=== PATIENT | male | born 1960 | race African-American/Black ===

== ENCOUNTER 2016-10-13 23:42 | Observation (INO) | payer OTHER ==
[~2016-10-13] VITALS: Ht 180.3 cm; Wt 93.7 kg
[~2016-10-13 23:42] MED LIST: ADVAIR 500/501 DISK IH; LISINOPRIL10 MG PO; NAPROSYN500 MG PO; NORCO 5/3251 TABLET PO; SPIRIVA1 INHALATI IH; VENTOLIN HFA18 GM IH
[2016-10-14] VITALS (7 sets, daily range): BP systolic 111–165; BP diastolic 71–98
[2016-10-14 01:02] LABS: HEMATOCRIT 45.7 % (38.0-50.0); MCH 30.7 PG (29.0-34.0); MCHC 34.1 G/DL (30.0-36.0); MEAN PLAT.VOLUME 9.7 uM^3 (9.0-12.4); PLATELET COUNT 217 K/uL (156-360); RBC DIS.WIDTH-CV 13.2 % (11.8-14.6); RBC DIS.WIDTH-SD 43.9 % (39-53); RED BLOOD COUNT 5.08 M/uL (4.00-5.50); WHITE BLOOD COUNT 4.6 K/uL (4.1-10.2)
[2016-10-14 01:10] LABS: CHLORIDE 104 mEq/L (99-109); POTASSIUM 3.6 mEq/L (3.7-5.4); SODIUM 143 mEq/L (136-147)
[2016-10-14 01:12] LABS: GLUCOSE 90 mg/dL (70-99)
[2016-10-14 01:13] LABS: ANION GAP 12 MEQ/L (2-14)
[2016-10-14 01:15] LABS: GFR ESTIMATE (CALCULATED) > 59 mL/min/
[2016-10-14 01:16] LABS: UREA NITROGEN (BUN) 14 mg/dL (9-23)
[2016-10-14 01:21] LABS: TROP-I INTERPRETATION NEGATIVE; TROPONIN-I < 0.01 ng/mL (0.0-0.30)
[2016-10-14 04:01] LABS: MAGNESIUM 1.7 mg/dL (1.3-2.7)
[2016-10-14 08:45] LABS: HDL CHOLESTEROL 46 MG/DL (Desirable>=40); LDL CHOLESTEROL 155 mg/dL (Desirable<100); NON-HDL CHOLESTEROL 173 mg/dL (Desirable<160); TOTAL CHOLESTEROL 219 mg/dL (Desirable<200); TRIGLYCERIDES 88 MG/DL (Normal: <150)
[2016-10-14 08:47] LABS: TROP-I INTERPRETATION NEGATIVE; TROPONIN-I 0.02 ng/mL (0.0-0.30)
[2016-10-14 09:07] LABS: ANION GAP 8 MEQ/L (2-14); CHLORIDE 103 MEQ/L (99-109); GFR ESTIMATE (CALCULATED) > 59 mL/min/; GLUCOSE 92 mg/dL (70-99); POTASSIUM 4.3 MEQ/L (3.7-5.4); SODIUM 140 MEQ/L (136-147); UREA NITROGEN (BUN) 15 mg/dL (9-23)
[2016-10-14] MEDS ORDERED: ALEVE220 MG PO (14:00)
[2016-10-14 15:43] LABS: TROP-I INTERPRETATION NEGATIVE; TROPONIN-I 0.01 ng/mL (0.0-0.30)
[2016-10-15 03:47] VITALS: BP 125/76
[2016-10-15 07:00] VITALS: BP 127/77
[2016-10-15] MEDS ORDERED: ATORVASTATIN CA80 MG PO (08:20)
[2016-10-15] MEDS ORDERED: ASPIR-LOW81 MG PO (08:21)
[2016-10-15] MEDS ORDERED: LOPRESSOR25 MG PO (08:21)
[2016-10-15] MEDS ORDERED: VENTOLIN HFA18 GM IH (10:21)
[2016-10-15] MEDS ORDERED: SPIRIVA1 INHALATI IH (10:21)
[2016-10-15] MEDS ORDERED: ADVAIR 500/501 DISK IH (10:22)
[2016-10-15 11:40] VITALS: BP 122/75
== END 2016-10-15 13:20 | disposition home or self-care (01) ==
LOC: EME 23:42 → 5WEST 10-14 03:33 → EDOF 10-14 03:33 → ENRESERV 10-14 03:35 → 5WEST 10-14 04:37
PROVIDERS: Physician Assistant Medical
DX: R07.9 Chest pain, unspecified (principal); Z82.41 Family history of sudden cardiac death; R94.31 Abnormal electrocardiogram [ECG] [EKG]; I45.19 Other right bundle-branch block; I12.9 Hypertensive chronic kidney disease with stage 1 through stage 4 chronic kidney disease, or unspecified chronic kidney disease; N18.2 Chronic kidney disease, stage 2 (mild); J45.909 Unspecified asthma, uncomplicated; Z91.19 Patient's noncompliance with other medical treatment and regimen; Z88.0 Allergy status to penicillin; Z91.013 Allergy to seafood
CPT/HCPCS: 71020; 80048; 80048 91; 80061; 83735; 84484; 85027; 93005; 93306; 99281; 99284; G0378

== ENCOUNTER 2017-10-24 21:18 | Emergency (ER) | payer OTHER ==
[~2017-10-24] VITALS: Ht 180.3 cm; Wt 94.4 kg
[~2017-10-24 21:18] MED LIST changes: +ALEVE220 MG PO; +ASPIR-LOW81 MG PO; +ATORVASTATIN CA80 MG PO; +LOPRESSOR25 MG PO
[2017-10-24 21:59] LABS: HEMATOCRIT 44.5 % (38.0-50.0); HEMOGLOBIN 14.7 G/DL (12.5-16.6); MCH 30.4 PG (29.0-34.0); MCV 92.1 FL (86-99); PLATELET COUNT 205 K/uL (156-360); RBC DIS.WIDTH-CV 13.5 % (11.8-14.6); RBC DIS.WIDTH-SD 46.4 % (39-53); RED BLOOD COUNT 4.83 M/uL (4.00-5.50)
[2017-10-24 22:07] LABS: CHLORIDE 105 mEq/L (99-109); POTASSIUM 3.8 mEq/L (3.7-5.4); SODIUM 140 mEq/L (136-147)
[2017-10-24 22:09] LABS: GLUCOSE 114 mg/dL (70-99)
[2017-10-24 22:13] LABS: CREATININE 1.4 mg/dL (0.6-1.3); GFR ESTIMATE (CALCULATED) > 59 mL/min/ (58.99-99999)
[2017-10-24 22:14] LABS: UREA NITROGEN (BUN) 14 mg/dL (9-23)
[2017-10-24 22:22] LABS: TROP-I INTERPRETATION NEGATIVE; TROPONIN-I < 0.01 ng/mL (0.0-0.30)
[2017-10-25 00:12] LABS: APPEARANCE CLEAR ((CLEAR)); BILIRUBIN NEGATIVE; BLOOD SMALL; COLOR YELLOW ((YELLOW)); GLUCOSE (STRIP) NEGATIVE; KETONES NEGATIVE; LEUKOCYTES NEGATIVE; NITRITE NEGATIVE; PROTEIN (STRIP) NEGATIVE; UROBILINOGEN 0.2 MG/DL (0.2-1.0)
[2017-10-25 00:18] LABS: BACTERIA NONE SEEN /HPF; EPITHELIAL CELLS RARE /HPF; MUCUS 1+ /LPF; RED BLOOD CELLS 0-5 /HPF (0-5); UCUL ADDED? NO; WHITE BLOOD CELLS 0-5 /HPF (0-5)
[2017-10-25] MEDS ORDERED: FLEXERIL10 MG PO (01:40)
[2017-10-25 01:59] VITALS: BP 160/95
== END 2017-10-25 02:00 | disposition home or self-care (01) ==
LOC: EME 21:18
PROVIDERS: Nurse Practitioner Family
DX: R10.9 Unspecified abdominal pain (principal); R07.9 Chest pain, unspecified; R31.9 Hematuria, unspecified; R79.89 Other specified abnormal findings of blood chemistry; M54.9 Dorsalgia, unspecified; I10 Essential (primary) hypertension
CPT/HCPCS: 71046; 80048; 81003; 84484; 85027; 93005; 99281; 99284; J1885